=== PATIENT | female | born 1995 | race Hispanic/Latino ===

== ENCOUNTER 2021-02-26 13:59 | Outpatient (CLI) | payer BC, SELFPAY ==
--- NOTE | ~2021-02-26 | US_ITS ---
EXAMINATION: US OB /maternal detail DATE: 02/26/2021 15:26 INDICATION: anatomic survey. TECHNIQUE: Real-time ultrasound of the pelvis was performed. COMPARISON: None. FINDINGS: There is a single living fetus in variable presentation. The placenta is anterior. heart rate is 152 beats per minute (bpm). The amniotic fluid volume is subjectively normal. The following biometric data were obtained: Biparietal diameter (BPD): 5.1 cm; head circumference (HC): 19.0 cm; abdominal circumference (AC): 16 .9 cm; femur length (FL): 3.6 cm. These measurements are concordant. Estimated weight is 442 g +/- 66 g, which correlates with 35th percentile when 07/03/21 is used a s estimated date of delivery. As single measurements, these parameters are each equal to the following estimated gestational ages: BPD: 21 weeks 4 days. HC: 21 weeks 2 days. AC: 21 weeks 6 days. FL: 21 weeks 4 days. estimated gestational age based solely on measurements from this exam is 21 weeks 4 days +/- 1 weeks 4 days. The cerebral ventricles, cerebellum, cisterna magna, nuchal fold, and visualized portions of the spin e are normal, but not well visualized. The heart is not well visualized. The diaphragm, stomach, kidn eys, and bladder are normal. There are two umbilical arteries to yield a 3-vessel cord. The cord inse rtion is normal. IMPRESSION: 1. Single living fetus in variable presentation. 2. Estimated weight is 442 g +/- 66 g, which correlates with 35th percentile when 07/03/21 is us ed as estimated date of delivery. 3. heart not well visualized. Otherwise normal anatomic survey. Reviewed, dictated and finalized at location A. IMPRESSION: 1. Single living fetus in variable presentation. 2. Estimated weight is 442 g +/- 66 g, which correlates with 35th percen tile when 07/03/21 is used as estimated date of delivery. 3. heart not well visualized. Otherwise normal anatomic survey.
== END 2021-02-26 14:00 | disposition home or self-care (01) ==
PROVIDERS: Visit Provider Obstetrics & Gynecology
DX: Z36.89 Encounter for other specified antenatal screening (principal); Z3A.20 20 weeks gestation of pregnancy
CPT/HCPCS: 76805

== ENCOUNTER 2021-04-20 08:49 | Outpatient (RCR) | payer OTHER, SELFPAY ==
[2021-04-20] MEDS: RHO(D) IMMUNE GLOBULIN 300 MCG/2 ML SYRINGE IM (15:28)
== END 2021-07-18 23:59 | disposition home or self-care (01) ==
LOC: ANHLAB 08:49
PROVIDERS: Visit Provider Obstetrics & Gynecology
DX: Z29.13 Encounter for prophylactic Rho(D) immune globulin (principal); O36.0190 Maternal care for anti-D [Rh] antibodies, unspecified trimester, not applicable or unspecified; Z3A.00 Weeks of gestation of pregnancy not specified
CPT/HCPCS: 36415; 85461; 90384; 96372; J2790

== ENCOUNTER 2021-06-04 23:29 | Outpatient (CLI) | payer OTHER, SELFPAY ==
--- NOTE | 2021-06-05 00:11 | PC.NURSE ---
Dr. Clarke aware of pt cervical exam. Pt membranes intact with reactive strip. Okay to discharge pt.
[2021-06-05 00:45] VITALS: BP 136/88; PULSE 85
== END 2021-06-05 00:41 | disposition home or self-care (01) ==
LOC: ANHOBOP 23:37
PROVIDERS: Visit Provider Obstetrics & Gynecology
DX: O41.8X90 Other specified disorders of amniotic fluid and membranes, unspecified trimester, not applicable or unspecified (principal); Z3A.00 Weeks of gestation of pregnancy not specified
CPT/HCPCS: 59025; 84112

== ENCOUNTER 2021-06-29 12:23 | Inpatient (IN) | payer OTHER, SELFPAY ==
[2021-06-29] VITALS (60 sets, daily range): BP systolic 86–140; BP diastolic 44–94; PULSE 76–220; RESP 16; TEMP 36.4–37.2; O2SAT 93–100; BMI 45.1
[2021-06-29] MEDS: LACTATED RINGERS 1,000 ML 125 ML IV CONT ×2 (13:57→14:53)
[2021-06-29] MEDS: AMPICILLIN 2 GM/NS 100 ML 2 GM/100 ML BAG IVPB (13:58)
[2021-06-29 14:01] LABS: Basophils Absolute Auto 0.1 K/mm3 (0.0-0.1); Basophils Percent Auto 0.5 % (0.2-1.2); Eosinophils Absolute Auto 0.1 K/mm3 (0-0.3); Eosinophils Percent Auto 0.7 % (0-4.4); Hemoglobin 11.1 g/dL (12.0-15.0); Immature Granulocyte Absolute 0.06 K/mm3 (0.00-0.031); Immature Granulocyte Percent A 0.5 % (0-0.5); Lymphocytes Absolute Auto 2.04 K/mm3 (0.9-3.2); Lymphocytes Percent Auto 18.4 % (18.3-44.2); Mean Corpuscular HGB Conc 30.8 g/dl (32-36); Mean Corpuscular Hemoglobin 25.3 pg (26-34); Mean Platelet Volume 9.2 fl (7.4-10.4); Monocytes Absolute Auto 0.6 K/mm3 (0.1-0.6); Monocytes Percent Auto 5.6 % (2.6-8.5); Neutrophils Absolute Auto 8.2 K/mm3 (1.3-6.7); Neutrophils Percent Auto 74.3 % (45.5-73.1); Platelet Count Result 514 k/mm3 (150-375); Red Blood Count 4.39 M/mm3 (4.2-5.4); Red Cell Distribution Width 15.1 % (11.5-14.5); White Blood Count 11.1 K/mm3 (4.5-10.0)
[2021-06-29] MEDS: OXYTOCIN 30 UNITS/NS 500 ML 30 UNITS/500 ML BAG IV CONT (14:54)
--- NOTE | 2021-06-29 14:54 | WPDANESEPPF ---
Anes - Initial Pre Proc Eval Procedure: labor epidural Date/Time: 06/29/21 14:54 Surgeon: Star Claudio MD Pre Op Diagnosis: labor pain Pre Op Diagnosis: Cramping & Leaking Patient Data Age: 26 Gender: F Height: Weight: Last Vital Signs Temp 37.2 C 06/29/21 14:00 Pulse 92 06/29/21 14:51 BP 133/71 06/29/21 14:51 Pulse Ox 99 06/29/21 14:49 Allergies Allergy/AdvReac Type Severity Reaction Status Date / Time No Known Allergies Allergy Verified 06/29/21 13:12 Home Medications Medication Instructions Recorded Confirmed Type prenat.vits,jayden,zbn-ijnt-hbqqo 1 tablet PO DAILY 06/29/21 06/29/21 History [ #2] Laboratory Tests 06/29/21 06/29/21 13:49 13:49 WBC 11.1 K/mm3 H K/mm3 (4.5-10.0) RBC 4.39 M/mm3 M/mm3 (4.2-5.4) Hgb 11.1 g/dL L g/dL (12.0-15.0) Hct 36.0 % L % (37.0-47.0) MCV 82.0 fl fl (80-100) MCH 25.3 pg L pg (26-34) MCHC 30.8 g/dl L g/dl (32-36) RDW 15.1 % H % (11.5-14.5) Plt Count 514 k/mm3 H k/mm3 (150-375) MPV 9.2 fl fl (7.4-10.4) Immature Gran % (Auto) 0.5 % % (0-0.5) Neut % (Auto) 74.3 % H % (45.5-73.1) Lymph % (Auto) 18.4 % % (18.3-44.2) [place] % (Auto) 5.6 % % (2.6-8.5) Eos % (Auto) 0.7 % % (0-4.4) Baso % (Auto) 0.5 % % (0.2-1.2) Lymph # (Auto) 2.04 K/mm3 K/mm3 (0.9-3.2) [place] # (Auto) 0.6 K/mm3 K/mm3 (0.1-0.6) Eos # (Auto) 0.1 K/mm3 K/mm3 (0-0.3) Baso # (Auto) 0.1 K/mm3 K/mm3 (0.0-0.1) Abs Immat Gran (auto) 0.06 K/mm3 H K/mm3 (0.00-0.031) Absolute Neuts (auto) 8.2 K/mm3 H K/mm3 (1.3-6.7) Absolute Nucleated RBC 0.0 K/mm3 K/mm3 (0.0-0.012) Nucleated RBC % 0.0 % % (0.0-0.2) RPR Pending Patient hx anesthesia problems: none Family hx anesthesia problems: none PMFSH Family History Family History (Updated 06/29/21 @ 13:13 by Aubree Amaral RN) Father Diabetes mellitus Social History Social History Substance use: former Last use: 8 MONTHS AGO Spiritual care concerns: No Anes - Eval Final PreProcedure Day of Procedure 06/29/21 14:54 Informed Consent: The patient's anesthetic plan and its attendant risks and benefits were discussed with the patient/family/POA. Questions were solicited and answers provided to the satisfaction of the patient/family/POA.
--- NOTE | 2021-06-29 16:22 | WPDHPUPDATE1 ---
History and Physical Update Update Date/Time: 06/29/21 16:22 26 yo at 39w0d who presents with SROM. pt reports a gush of fluid last night. She denies any abdominal pain, fever, chills, nausea, vomiting. Pt has a history of PTD after PPROM. Her has been uncomplicated thus far. History and Physical has been reviewed, including an updated exam of the patient. There are NO changes in the patient's condition. Risks, benefits, and alternatives have been discussed and questions answered. Patient agrees to proceed with procedure. 26 yo at 39w0d with SROM admit to L&D routine admission orders Rh neg, will need rhogam PP GBS +, PCN in labor SROM will augment with pitocin FHT cat 1 continuous EFM
--- NOTE | 2021-06-29 17:11 | P.PCNOB_ITS ---
OB - Delivery Note Procedure Procedure: Patient pushed for a spontaneous vaginal delivery. The fetus was delivered atraumatically and placed on the maternal abdomen. The cord was clamped and cut after 1 minute of life. The cord was double clamped and cut and a segment of cord was collected for cord gases. Cord blood was collected for blood type and Coomb's testing. The placenta delivered spontaneously and was noted to be intact. The perineum was inspected and there were no lacerations noted. The uterus was firm and good hemostasis was noted. The patient and fetus were stable in the delivery room. events: No Care Intrapartal events: None Induction method: none Delivery augmentation: pitocin Delivery monitor: external FHT Route of delivery: Episiotomy description: None Laceration Description: None Specimen: No Quantitative Blood Loss (ml): 200 Anesthesia type: Epidural Disposition: floor () Complications: No immediate complications [place] Baby Date of : 06/29/21 Time of : 17:02 Weeks of gestation at delivery: 39 gender: Female Weight (pounds): 5 Weight (ounces): 10 presentation: vertex position: Right Occiput Anterior Placenta delivery description: Spontaneous cord vessel description: 3 Vessels score one minute: 8 score five minutes: 9
[2021-06-29] MEDS: OXYTOCIN 30 UNITS/NS 500 ML 30 UNITS/500 ML BAG 125 UNITS IV CONT (17:19)
[2021-06-29] MEDS: WITCH HAZEL 40 PADS 1 PAD TOPICAL (19:20)
[2021-06-29] MEDS: IBUPROFEN 600 MG TABLET PO (19:20)
[2021-06-29] MEDS: LORATADINE 10 MG TABLET PO (19:20)
[2021-06-29] MEDS: BENZOCAINE 20% AER SPR (*SP) 56 GM CAN 1 SPRAY TOPICAL (19:20)
--- NOTE | 2021-06-29 20:03 | PC.NURSE ---
Patient transferred to post room #277 via wheel chair. Support person present. Oriented to unit, room, information board, rooming in, admission packet and security measures. Patient verbalizes understanding.
[2021-06-29] MEDS: ACETAMINOPHEN 325 MG TABLET 650 MG PO (23:43)
[2021-06-30] MEDS: LANOLIN (LANSINOH) 7.5 GM CREAM 1 APPLIC TOPICAL (00:33)
[2021-06-30 00:40] VITALS: BP 94/54; PULSE 88; RESP 18; TEMP 36.6; O2SAT 98
[2021-06-30] MEDS: IBUPROFEN 600 MG TABLET PO ×4 (01:50→20:16)
[2021-06-30 02:36] LABS: Amphetamine Screen Urine Negative (Negative); Barbiturate Screen Urine Negative (Negative); Benzodiazepines Screen Urine Negative (Negative); Cannabinoid Screen Urine Negative (Negative); Cocaine Screen Urine Negative (Negative); Methadone Screen Urine Negative (Negative); Opiate Screen Urine Negative (Negative); Phencyclidine Screen Urine Negative (Negative)
[2021-06-30 04:10] VITALS: BP 94/51; PULSE 82; RESP 18; TEMP 36.7
[2021-06-30 05:24] LABS: Hematocrit 33.8 % (37.0-47.0); Hemoglobin 10.4 g/dL (12.0-15.0)
[2021-06-30] MEDS: ACETAMINOPHEN 325 MG TABLET 650 MG PO (06:39)
[2021-06-30] MEDS: MULTIVIT/MIN/PREN/FOL AC/IRON TABLET 1 TAB PO (06:41)
[2021-06-30 06:45] VITALS: BP 118/82; PULSE 80; RESP 18; TEMP 36.1
--- NOTE | 2021-06-30 09:08 | PM.OBDSVD ---
DS: Admitting Diagnosis Admitting Diagnosis intrauterine at term SROM OB - DS: Summary OB Procedures : None OB Procedures Intrapartum: Spontaneous Vag Delivery OB Procedures: : None Status at Discharge Functional status at discharge: independent ambulation Overall status at discharge: patient is back to baseline Time Spent with Patient Time attestation: Total time spent providing and/or coordinating discharge services: Time spent: Less than 30 minutes Exam Const: General: comfortable and no acute distress Resp: Effort & Inspection: normal respiratory effort Auscultation: clear to auscultation bilaterally Cardio: Rate: regular rate GI: GI Palp: Yes Soft to palpation Auscultation: normal bowel sounds Other: Fundus firm below umbilicus Psych: Appearance: grossly normal Mental Status: mental status grossly normal Affect: normal affect DS: Data Data Completed and Pending Labs on day of discharge: Labs from last 24 hours 06/30/21 06/30/21 06/30/21 04:02 04:02 01:50 WBC RBC Hgb 10.4 L Hct 33.8 L MCV MCH MCHC RDW Plt Count MPV Immature Gran % (Auto) Neut % (Auto) Lymph % (Auto) [place] % (Auto) Eos % (Auto) Baso % (Auto) Lymph # (Auto) [place] # (Auto) Eos # (Auto) Baso # (Auto) Abs Immat Gran (auto) Absolute Neuts (auto) Absolute Nucleated RBC Nucleated RBC % Urine Opiates Screen Negative Urine Methadone Screen Negative Ur Barbiturates Screen Negative Ur Phencyclidine Scrn Negative Ur Amphetamine Screen Negative U Benzodiazepines Scrn Negative Urine Cocaine Screen Negative U Cannabinoids Screen Negative RPR Blood Type O Negative Antibody Screen Negative Screen Negative Baby's Blood Type O pos Baby's KLAUS Negative Doses of RhIg Required 1 06/29/21 06/29/21 06/29/21 13:49 13:49 13:49 WBC 11.1 H RBC 4.39 Hgb 11.1 L Hct 36.0 L MCV 82.0 MCH 25.3 L MCHC 30.8 L RDW 15.1 H Plt Count 514 H MPV 9.2 Immature Gran % (Auto) 0.5 Neut % (Auto) 74.3 H Lymph % (Auto) 18.4 [place] % (Auto) 5.6 Eos % (Auto) 0.7 Baso % (Auto) 0.5 Lymph # (Auto) 2.04 [place] # (Auto) 0.6 Eos # (Auto) 0.1 Baso # (Auto) 0.1 Abs Immat Gran (auto) 0.06 H Absolute Neuts (auto) 8.2 H Absolute Nucleated RBC 0.0 Nucleated RBC % 0.0 Urine Opiates Screen Urine Methadone Screen Ur Barbiturates Screen Ur Phencyclidine Scrn Ur Amphetamine Screen U Benzodiazepines Scrn Urine Cocaine Screen U Cannabinoids Screen RPR Pending Blood Type O Negative Antibody Screen Negative Screen Baby's Blood Type Baby's KLAUS Doses of RhIg Required Discharge Plan Discharge Discharging Clinician: Stefano Eisenberg Patient Disposition: Home, Self-Care Activity: as tolerated and pelvic rest Diet: regular Patient Instructions: Antibiotic Form Stand Alone Forms: General Discharge Information Follow-up/Referrals: Star Claudio MD [Physician] - 6 Weeks Discharge Medications: New acetaminophen [Mapap (acetaminophen)] 325 mg Tablet 650 mg PO Q6H PRN (Reason: Mild Pain (1-3) Or Headache) Qty: 30 RF: 0 ibuprofen 600 mg Tablet 600 mg PO Q6H PRN (Reason: Cramping) Qty: 30 RF: 0 No Action #2 Tablet 1 tablet PO DAILY RF: 0 Date of admission: 06/29/21 12:23 Primary Care Provider: PHYSICIAN,CLINICAL MANAGER HOME CARE Admitting Provider: Star Claudio Attending physician on admission: Star Claudio Condition: Stable
[2021-06-30 11:30] VITALS: BP 133/74; PULSE 92; RESP 18; TEMP 36.1
[2021-06-30] MEDS: TETANUS,DIPHTHERIA,AC PERTUSSIS ADULT (0.5 ML) BOOSTRIX IM (11:54)
[2021-06-30] MEDS: RHO(D) IMMUNE GLOBULIN 300 MCG/2 ML SYRINGE IM (11:54)
[2021-06-30 16:00] VITALS: BP 112/71; PULSE 91; RESP 18; TEMP 36.1; O2SAT 99
[2021-06-30 19:20] VITALS: BP 131/80; PULSE 97; RESP 16; TEMP 36.7
--- NOTE | 2021-06-30 22:04 | PC.NURSE ---
Patient viewed the discharge video Mother & Baby Care, The First Two Weeks online. Patient was given the opportunity and encouraged to ask questions. Patient verbalized understanding of information shared and has been given the mother/baby guide for home reference.
[2021-07-01] MEDS: IBUPROFEN 600 MG TABLET PO ×2 (02:12→07:49)
[2021-07-01] MEDS: MULTIVIT/MIN/PREN/FOL AC/IRON TABLET 1 TAB PO (07:49)
[2021-07-01 08:00] VITALS: BP 112/78; PULSE 92; RESP 16; TEMP 36.4; O2SAT 100
[2021-07-03 10:30] LABS: Rapid Plasma Reagin Non-Reactive (NonReactive)
[2021-07-04 10:54] VITALS: BP 133/76; PULSE 79; RESP 20; TEMP 37.1; O2SAT 100
== END 2021-07-01 11:08 | disposition home or self-care (01) | DRG 560 ==
LOC: ANHLDR 13:27 → ANHOB2 06-30 09:09 → ANHLDR 07-04 11:38 → ANHOB2 07-04 11:38
PROVIDERS: Admitting Provider Student in an Organized Health Care Education/Training Program; Visit Provider Student in an Organized Health Care Education/Training Program
DX: O99.824 Streptococcus B carrier state complicating childbirth (principal); O62.3 Precipitate labor; Z3A.39 39 weeks gestation of pregnancy; Z37.0 Single live birth
CPT/HCPCS: 36415; 80307; 85014; 85018; 85025; 85461; 86592; 86850; 86900; 86901; 90384; 90715; A9270; J0290; J2590; J2790; J2795; J7120

== ENCOUNTER 2024-05-17 10:38 | Emergency (ER) | payer OTHER, SELFPAY ==
--- NOTE | ~2024-05-17 | XR_ITS ---
EXAMINATION: XR thoracic spine 3V DATE: 05/17/2024 11:37 INDICATION: Right upper back pain TECHNIQUE: One AP, lateral and lateral swimmer's views of the thoracic spine were obtained. COMPARISON: None. FINDINGS: Bilateral hypoplastic riblets at T12. Partially visualized mild upper lumbar levocurvature. Sagittal alignment is normal. Vertebral body heights are normal. Mild left-sided disc height loss at T11-T12. Mild right-sided disc height loss at T12-L1 and L1-L2. Posterior elements and visualized portions of the ribs appear normal. Lungs are clear with no pleural effusion or pneumothorax. Heart size is roberto l. IMPRESSION: 1. Partial visualized mild upper lumbar levocurvature with mild spondylosis at the lower thoracic and upper lumbar spine. Reviewed, dictated and finalized at location A.
[2024-05-17 10:53] VITALS: BP 124/71; PULSE 73; RESP 20; TEMP 36.4; O2SAT 100
[2024-05-17] MEDS: KETOROLAC (*BKC) 60 MG/2 ML VIAL IM (11:43)
--- NOTE | 2024-05-17 13:38 | ED.BACK ---
HPI - Back Pain/Injury General Chief Complaint: Back Pain/Injury Stated Complaint: R back pain Time Seen by Provider: 05/17/24 11:07 History of Present Illness HPI Narrative: Patient is a 29-year-old female who presents ER with left-sided upper back pain. Ongoing since this morning. 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 She has no known trauma but he moves patient's regular. No numbness or tingling in the arms or legs. Has not tried any pain medication. Related Data Allergies Allergy/AdvReac Type Severity Reaction Status Date / Time No Known Allergies Allergy Verified 05/17/24 10:57 Review of Systems Constitutional: Constitutional: Reports no additional constitutional complaints Genitourinary: Genitourinary: Reports no additional female genitourinary complaints Musculoskeletal: Musculoskeletal: Reports back pain, Denies arthralgias and Denies joint swelling Neurologic: Reports system reviewed and no additional complaints, except as documented PMFSH Surgical History Surgical History H/O breast augmentation H/O gynecological procedure 09/30/23 Nexplanon insertion History of ankle surgery Family History Family History Father Diabetes mellitus Social History Social History (Updated 09/30/23 @ 13:55 by Jayne Hernandez MA) Smoking status: Never smoker Alcohol intake: never Substance use: former Lack of Transportation: No Lack of Food: Never True Current Housing: I Have Housing Concerned About Future Housing: No Difficulty Paying Gas/Electric Bills: YES Difficulty Paying for Meds: YES Currently Unemployed: No Education: High School Diploma/GED Difficulty w/ Childcare or Family Care: YES Living arrangements: with family Occupation/Education: occupation Gender identity (if verbalized by the patient): Female Sexual Orientation (if Verbalized by the Patient): Straight or Heterosexual Spiritual care concerns: No Exam Narrative: GENERAL: Well-appearing, well-nourished, and in no acute distress. HEAD: Normocephalic, atraumatic. CHEST: Clear to auscultation. No respiratory distress. HEART: Regular rate and rhythm. Normal peripheral pulses. Back: No reproducible midline tenderness the T/L-spine. Mild tenderness of the paraspinal musculature the midthoracic region on left side. EXTREMITIES: Normal range of motion. No edema. SKIN: Warm, dry, no rash. NEURO: Alert and oriented x3. PSYCH: Normal mood and affect. Course Course Emergency Course: Pain improved with Toradol. Discussed outpatient treatment plan and discussed imaging results. Vital Signs Vital signs: Vital Signs Temperature 97.6 F 05/17/24 10:53 Pulse Rate 73 05/17/24 10:53 Respiratory Rate 20 05/17/24 10:53 Blood Pressure 124/71 05/17/24 10:53 Pulse Oximetry 100 05/17/24 10:53 Oxygen Delivery Room Air 05/17/24 10:53 Temperature 97.6 F 05/17/24 10:53 Pulse Rate 73 05/17/24 10:53 Respiratory Rate 20 05/17/24 10:53 Blood Pressure 124/71 05/17/24 10:53 Pulse Oximetry 05/17/24 10:53 Oxygen Delivery Room Air 05/17/24 10:53 MDM - Back Pain/Injury Imaging Data Radiologist's impression: ITS Impressions Thoracic Spine X-Ray 05/17/24 12:06 IMPRESSION: 1. Partial visualized mild upper lumbar levocurvature with mild spondylosis at the lower thoracic and upper lumbar spine. Discharge Plan Discharge Clinical Impression: Strain of thoracic back region Patient Disposition: Home, Self-Care Condition: Stable Instructions: Thoracic Back Strain (ED) Additional Instructions: Please return to the emergency department if you develop severe pain that is not controlled by pain medications or if you are unable to walk because of pain or weakness. Return to the emergency department immediately if you develop fevers, loss of bowel or
== END 2024-05-17 14:07 | disposition home or self-care (01) ==
PROVIDERS: Emergency Provider Emergency Medicine
DX: S29.012A Strain of muscle and tendon of back wall of thorax, initial encounter (principal); X50.0XXA Overexertion from strenuous movement or load, initial encounter; Y93.F2 Activity, caregiving, lifting
CPT/HCPCS: 72072; 81025; 96372; 99283; J1885

== ENCOUNTER 2025-01-01 05:38 | Emergency (ER) | payer OTHER, SELFPAY ==
--- NOTE | ~2025-01-01 | US_ITS ---
EXAMINATION: US abdomen limited DATE: 01/01/2025 08:49 INDICATION: Right upper quadrant abdominal pain. TECHNIQUE: Multiple grayscale and Doppler ultrasound images of the abdomen were obtained. COMPARISON: None FINDINGS: The visualized portions of the head and body of the pancreas are normal. The liver is roberto l without focal lesion. There is normal flow in main portal vein. The gallbladder is normal in size a nd contains stones. No gallbladder wall thickening or sonographic Mulligan sign. The common duct is nor mal and measures 4 mm. IMPRESSION: 1. Cholelithiasis. No evidence of acute cholecystitis. Reviewed, dictated and finalized at location A. R CHASER
[2025-01-01 05:59] LABS: BEDSIDEPREGUCG Negative (Negative)
[2025-01-01 06:06] LABS: Basophils Absolute Auto 0.1 K/mm3 (0.0-0.1); Basophils Percent Auto 0.9 % (0.2-1.2); Eosinophils Absolute Auto 1.2 K/mm3 (0-0.3); Eosinophils Percent Auto 10.9 % (0-4.4); Hematocrit 37.7 % (37.0-47.0); Hemoglobin 11.8 g/dL (12.0-15.0); Immature Granulocyte Absolute 0.05 K/mm3 (0.00-0.031); Immature Granulocyte Percent A 0.5 % (0-0.5); Lymphocytes Absolute Auto 3.25 K/mm3 (0.9-3.2); Lymphocytes Percent Auto 30.6 % (18.3-44.2); Mean Corpuscular HGB Conc 31.3 g/dl (32-36); Mean Corpuscular Hemoglobin 27.7 pg (26-34); Mean Corpuscular Volume 88.5 fl (80-100); Mean Platelet Volume 9.2 fl (7.4-10.4); Monocytes Absolute Auto 0.7 K/mm3 (0.1-0.6); Monocytes Percent Auto 6.5 % (2.6-8.5); Neutrophils Absolute Auto 5.4 K/mm3 (1.3-6.7); Neutrophils Percent Auto 50.6 % (45.5-73.1); Platelet Count Result 455 k/mm3 (150-375); Red Blood Count 4.26 M/mm3 (4.2-5.4); Red Cell Distribution Width 15.9 % (11.5-14.5); White Blood Count 10.6 K/mm3 (4.5-10.0)
[2025-01-01 06:08] LABS: Add Urine Microscopic? NO; Appearance Urine Clear (Clear); Bilirubin Urine Negative (Negative); Blood Urine Negative (Negative); Color Urine Yellow (Yellow); Glucose Urine UA Negative (Negative); Ketones Urine Negative (Negative); Leukocyte Esterase Ur Negative LEU/UL (Negative); Nitrate Urine Negative (Negative); Protein Urine Negative (Negative); Specific Grav Ur 1.022 (1.001-1.035)
[2025-01-01 06:18] LABS: Alanine Aminotransferase 46 U/L (6-35); Albumin Level 4.5 g/dL (3.5-5.1); Alkaline Phosphatase 93 U/L (38-126); Anion Gap 6 mmol/L (4-12); Aspartate Amino Transferase 31 U/L (14-36); Bilirubin,Total 0.2 mg/dL (0.2-1.3); Blood Urea Nitrogen 13 mg/dL (7-17); Calcium 8.6 mg/dL (8.4-10.2); Carbon Dioxide 29 mmol/L (22-30); Chloride 103 mmol/L (98-107); Estimated CRCL calculation 165 ml/min; Estimated Glomerular Filt Rate > 60; Glucose 106 mg/dL (65-110); Lipase 69 U/L (23-300); Potassium 3.8 mmol/L (3.4-5.0); Sodium 138 mmol/L (137-145)
--- NOTE | 2025-01-01 07:03 | ECG_ITS ---
Test Date: 2025-01-01 07:14:02 Measurements Intervals [place] Rate: 60 P: 1 DC: 143 QRS: 66 QRSD: 83 T: 32 QT: 445 QTc: 445 Interpretive Statements SINUS RHYTHM NORMAL ELECTROCARDIOGRAM No previous ECG available for comparison Electronically Signed On 01-01-2025 15:54:21 DENTAL RESIDENT by Dez Fischer M.D.
[2025-01-01] MEDS: BELLADONNA ALK/PHENOB ELIX 10 ML, MAG HYDROX/ALUMINUM HYD/SIMETH 30 ML, LIDOCAINE 2% VI... PO (07:19)
[2025-01-01] MEDS: FAMOTIDINE 20 MG/2 ML VIAL IV PUSH (07:21)
[2025-01-01] MEDS: PANTOPRAZOLE SODIUM IV 40 MG VIAL IV PUSH (07:23)
[2025-01-01 07:26] VITALS: BP 107/80; PULSE 81; RESP 16; O2SAT 100
--- NOTE | 2025-01-01 07:43 | ED_ITS ---
HPI - General Adult General Chief complaint: Unspecified Stated complaint: epigastric and back pain Time Seen by Provider: 01/01/25 06:55 History of Present Illness HPI narrative: 29-year-old female presenting to the emergency department for evaluation for acute onset of right upper quadrant abdominal pain. Patient states she started having upper quadrant pain last night approximately 2:00 a.m.. Patient has nausea without vomiting. Patient did try home remedies for this without improvement. Patient denies any prior history of gallbladder disease. Patient does have prior surgical history of breast augmentation. Patient denies any prior abdominal surgeries. Related Data Allergies Allergy/AdvReac Type Severity Reaction Status Date / Time No Known Allergies Allergy Verified 01/01/25 07:18 Review of Systems 2 Review of Systems: All systems reviewed & are unremarkable except as noted in HPI and below PMFSH Surgical History Surgical History H/O breast augmentation H/O gynecological procedure 09/30/23 Nexplanon insertion History of ankle surgery Family History Family History Father Diabetes mellitus Social History Social History (Updated 09/30/23 @ 13:55 by Jayne Hernandez MA) Smoking status: Never smoker Alcohol intake: never Substance use: former Lack of Transportation: No Lack of Food: Never True Current Housing: I Have Housing Concerned About Future Housing: No Difficulty Paying Gas/Electric Bills: YES Difficulty Paying for Meds: YES Currently Unemployed: No Education: High School Diploma/GED Difficulty w/ Childcare or Family Care: YES Living arrangements: with family Occupation/Education: occupation Gender identity (if verbalized by the patient): Female Sexual Orientation (if Verbalized by the Patient): Straight or Heterosexual Spiritual care concerns: No Exam 2 Narrative: APPEARANCE: Well appearing, no pain, no distress, well-nourished. HEAD: normocephalic, atraumatic. EYES: PERRLA/EOMI, conjunctivae clear. NOSE: Normal no drainage EARS:TMS clear with good light reflex. THROAT: Pharynx clear, no exudate. NECK: Supple. No adenopathy, no masses. RESPIRATORY: Airway patent, respirations nonlabored. Clear to auscultation bilaterally, no rales, rhonchi, wheezing. CARDIOVASCULAR: Regular rate and rhythm without murmurs rubs or gallops. ABDOMINAL: Right upper quadrant abdominal tenderness, minimal epigastric tenderness, no significant left upper quadrant abdominal tenderness MUSCULOSKELETAL: Moves all extremities. Strength/ROM intact, No edema, No calf tenderness. NEURO: Alert. Cranial nerves II through XII intact. Grossly intact SKIN: Warm, dry. Normal Color Course Vital Signs Vital signs: Vital Signs Pulse Rate 81 01/01/25 07:26 Respiratory Rate 16 01/01/25 07:26 Blood Pressure 107/80 01/01/25 07:26 Pulse Oximetry 100 01/01/25 07:26 Temperature 97.5 F L 01/01/25 11:08 Pulse Rate 62 01/01/25 11:08 Respiratory Rate 16 01/01/25 11:08 Blood Pressure 113/89 01/01/25 11:08 Pulse Oximetry 100 01/01/25 11:08 Medical Decision Making MDM Narrative Medical decision making narrative: 29-year-old female presents emergency department for evaluation right upper quadrant abdominal pain. Patient is currently afebrile with a mild leukocytosis of 10.7 and hemoglobin 11.8. Patient has no elevation of T bili AST alk-phos or lipase. UA was negative for infection. Ultrasound did show cholelithiasis without evidence of cholecystitis. Patient does appear improved at time of re- evaluation. Patient was advised to follow a low-fat diet and have outpatient follow-up. Patient is being provided medications for pain control. All questions concerns were addressed patient was comfortable the plan for discharge and close follow-up. Differential Diagnosis Differential Diagnosis: Biliary colic, coli cystitis, cholelithiasis Vital Signs Vital Signs: Vital Signs Pulse Rate 81 01/01/25 07:26 Respiratory Rate 16 01/01/25 07:26 Blood Pressure 107/80 01/01/25 07:26 Pulse Oximetry 100 01/01/25 07:26 Temperature 97.5 F L 01/01/25 11:08 Pulse Rate 62 01/01/25 11:08 Respiratory Rate 16 01/01/25 11:08 Blood Pressure 113/89 01/01/25 11:08 Pulse Oximetry 100 01/01/25 11:08 Lab Data Lab results reviewed: Yes I reviewed the patient's lab results. 01/01/25 05:59 01/01/25 05:59 Labs: Lab Results 01/01/25 01/01/25 Range/Units 05:58 05:59 WBC 10.6 H (4.5-10.0) K/mm3 RBC 4.26 (4.2-5.4) M/mm3 Hgb 11.8 L (12.0-15.0) g/dL Hct 37.7 (37.0-47.0) % MCV 88.5 (80-100) fl MCH 27.7 (26-34) pg MCHC 31.3 L (32-36) g/dl RDW 15.9 H (11.5-14.5) % Plt Count 455 H (150-375) k/mm3 MPV 9.2 (7.4-10.4) fl Immature Gran % (Auto) 0.5 (0-0.5) % Neut % (Auto) 50.6 (45.5-73.1) % Lymph % (Auto) 30.6 (18.3-44.2) % [place] % (Auto) 6.5 (2.6-8.5) % Eos % (Auto) 10.9 H (0-4.4) % Baso % (Auto) 0.9 (0.2-1.2) % Lymph # (Auto) 3.25 H (0.9-3.2) K/mm3 [place] # (Auto) 0.7 H (0.1-0.6) K/mm3 Eos # (Auto) 1.2 H (0-0.3) K/mm3 Baso # (Auto) 0.1 (0.0-0.1) K/mm3 Abs Immat Gran (auto) 0.05 H (0.00-0.031) K/mm3 Absolute Neuts (auto) 5.4 (1.3-6.7) K/mm3 Absolute Nucleated RBC 0.000 (0.0-0.012) K/mm3 Nucleated RBC % 0.0 (0.0-0.2) % Sodium 138 (137-145) mmol/L Potassium 3.8 (3.4-5.0) mmol/L Chloride 103 (98-107) mmol/L Carbon Dioxide 29 (22-30) mmol/L Anion Gap 6 (4-12) mmol/L BUN 13 (7-17) mg/dL Creatinine 0.55 L (0.7-1.0) mg/dL Estim Creat Clear Calc 165 ml/min Estimated GFR > 60 (59 - ) Glucose 106 (65-110) mg/dL Calcium 8.6 (8.4-10.2) mg/dL Total Bilirubin 0.2 (0.2-1.3) mg/dL AST 31 (14-36) U/L ALT 46 H (6-35) U/L Alkaline Phosphatase 93 (38-126) U/L Total Protein 8.0 (6.3-8.2) g/dL Albumin 4.5 (3.5-5.1) g/dL Lipase 69 (23-300) U/L Urine Color Yellow (Yellow) Urine Appearance Clear (Clear) Urine pH 7.0 (5.0-9.0) Ur Specific Dexter 1.022 (1.001-1.035) Urine Protein Negative (Negative) mg/dL Urine Glucose (UA) Negative (Negative) mg/dL Urine Ketones Negative (Negative) mg/dL Ur Blood (Man) Negative (Negative) Urine Nitrate Negative (Negative) Urine Bilirubin Negative (Negative) Urine Urobilinogen 1.0 (<2.0) mg/dL Leukocyte Esterase Rfl Negative (Negative) KOBE/UL POC Urine HCG, Qual Negative (Negative) Imaging Data Radiologist's impression: Impressions Abdomen Ultrasound 01/01/25 08:52 IMPRESSION: 1. Cholelithiasis. No evidence of acute cholecystitis. Discharge Plan Discharge Clinical Impression: Biliary colic Patient Disposition: Home, Self-Care Condition: Stable Instructions: Antibiotic Form, Biliary Colic (ED), Low Fat Diet (ED), Abdominal Pain (ED) Additional Instructions: Follow a low-fat diet. Ibuprofen for pain control. Russell as needed for additional pain control. Zofran as needed for nausea control. Have close follow-up with surgery. If you have any worsening symptoms then please call or return to the emergency department. Patient Language: Green[place]ic Prescriptions: New hydrocodone-acetaminophen 5-325 mg tablet 1 tablet PO Q12H PRN (Reason: pain) Qty: 14 0RF ondansetron 4 mg tablet,disintegrating 4 mg PO Q8H PRN (Reason: nausea and vomiting) Qty: 14 0RF No Action cyclobenzaprine 10 mg tablet 10 mg PO TID PRN (Reason: muscle spasm) Qty: 20 0RF naproxen 375 mg tablet 375 mg PO BID Qty: 14 0RF Follow-up/Referrals: PHYSICIAN NOT ON STAFF,NONSTAFF [Primary Care Provider] - Winston Ames DO [Physician] -
[2025-01-01] MEDS: ONDANSETRON INJ 4 MG/2 ML VIAL IV PUSH (07:51)
[2025-01-01] MEDS: HYDROmorphone HCL INJ (*CRX) 1 MG/ML SYR IV PUSH (07:53)
[2025-01-01 09:10] VITALS: BP 108/64; PULSE 97; RESP 17; O2SAT 100
[2025-01-01] MEDS: HYDROcodone/acetaminophen (*CRX) 7.5-325 MG TABLET 1 TAB PO (10:49)
[2025-01-01 10:50] VITALS: BP 109/68; PULSE 92; RESP 15; O2SAT 100
[2025-01-01 11:08] VITALS: BP 113/89; PULSE 62; RESP 16; TEMP 36.4; O2SAT 100
== END 2025-01-01 11:11 | disposition home or self-care (01) ==
PROVIDERS: Emergency Medicine; Emergency Provider Emergency Medicine
DX: K80.50 Calculus of bile duct without cholangitis or cholecystitis without obstruction (principal)
CPT/HCPCS: 36415; 76705; 80053; 81003; 81025; 83690; 85025; 93005; 96374; 96375; 99284; A9270; J1171; J2405; J2470

== ENCOUNTER 2025-01-28 00:08 | Day surgery (SDC) | payer OTHER, SELFPAY ==
[2025-01-21 11:41] VITALS: BMI 43.6
--- NOTE | 2025-01-21 11:49 | PC.NURSE ---
Report to the Outpatient Waiting Room, entrance under the green pavilion located off [facility], at time _1100_ on date _[id number]_. Planned Procedure Time: _1pm_.? Time changes happen often and if your time is changed the preop area will call you the afternoon before. - You and your visitor will be asked to self-screen and do not enter if you have any COVID symptoms. Please call surgeon if you need to reschedule. - A mask is optional within the hospital at this time. Patients may have clear liquids (water, carbonated beverages, clear teas, apple juice) until 3 hours prior to surgery with a maximum of 20 ounces. - No food from midnight until time of surgery and no smoking, or chewing tobacco (or any form of nicotine). No chewing gum, candy or mints. Take only the following medications with a SIP of water on the morning of surgery: ___Zofran if needed.___ DO NOT STOP ANY OF YOUR OTHER PRESCRIPTION MEDICATIONS PRIOR TO SURGERY EXCEPT THE FOLLOWING Hold all vitamins and supplements for 3 days per anesthesiologist. Medications to discontinue per physician Date to take last dose Please no make-up, nail american, hairspray, perfume, deodorant, or body powder the day of surgery.? No jewelry (including any body piercings) or valuables the day of surgery, leave them at home.? Please take a shower or bath the night before, or the morning of, surgery with an antibacterial soap.? Wear comfortable, loose fitting clothing.? - Jewelry must be removed prior to entering the operating room.? Rings and piercings that are not removed may be cut off. - The hospital will not accept responsibility for valuables.? - Please leave all valuables, including medications, at home the day of surgery. If you are going home after surgery, a licensed spotter driver must drive you home.? - NO public transportation without another adult if you receive anesthesia. - We recommend that an adult stay with you for 24 hours following discharge. - We also recommend that you do not drive, make important decision, drink alcoholic beverages, or take any drugs that were not prescribed by your health care provider for at least 24 hours after your discharge time. Follow any additional instructions given to you from your surgeon. Telephone instructions given to __Gloria__and asked if any additional questions and then verbalized understanding. Patient advised to call surgeon office or pre surgery nurse liaison [phone] if any additional questions.
[2025-01-28] VITALS (10 sets, daily range): BP systolic 108–139; BP diastolic 63–82; PULSE 82–108; RESP 12–20; TEMP 36.3–36.4; O2SAT 94–100; BMI 43.7
[2025-01-28] MEDS: ACETAMINOPHEN 500 MG TABLET 1000 MG PO (12:05)
[2025-01-28] MEDS: KETOROLAC 15 MG/ML VIAL (*BKC) IV PUSH (12:06)
[2025-01-28] MEDS: LACTATED RINGERS 1,000 ML 30 ML IV CONT ×2 (12:10→14:35)
[2025-01-28 12:25] LABS: Amylase 69 U/L (30-110)
[2025-01-28 12:36] LABS: BEDSIDEPREGUCG Negative (Negative)
--- NOTE | 2025-01-28 13:04 | WPDHPUPDATE1 ---
History and Physical Update Update Date/Time: 01/28/25 13:04 History and Physical has been reviewed, including an updated exam of the patient. There are NO changes in the patient's condition. Risks, benefits, and alternatives have been discussed and questions answered. Patient agrees to proceed with procedure.
--- NOTE | 2025-01-28 13:24 | WPDANESEPPF ---
Anes - Initial Pre Proc Eval Procedure: Operation Date: 01/28/25 13:00 Proposed Procedures p Laparoscopic Cholecystectomy - Winston Ames DO Date/Time: 01/28/25 13:24 Surgeon: Winston Ames DO Pre Op Diagnosis: symptomatic cholelithiasis Patient Data Age: 29 Gender: F Height: 1.68 m Weight: 122.9 kg Last Vital Signs Temp 36.4 C L 01/28/25 11:30 Pulse 95 01/28/25 11:30 Resp 14 01/28/25 11:30 BP 119/73 01/28/25 11:30 Pulse Ox 100 01/28/25 11:30 O2 Del Method Room Air 01/28/25 11:30 Allergies Allergy/AdvReac Type Severity Reaction Status Date / Time No Known Allergies Allergy Verified 01/28/25 12:28 Home Medications ?Medication ?Instructions ?Recorded ?Confirmed ?Type ondansetron 4 mg disintegrating 4 mg PO Q8H PRN nausea and 01/01/25 01/21/25 Rx tablet vomiting #14 tabs hydrocodone 5 mg-acetaminophen 325 1 tablet PO Q4H PRN pain #15 tabs 01/21/25 01/21/25 Rx mg tablet escitalopram oxalate 20 mg tablet 20 mg PO DAILY 01/28/25 01/28/25 History Laboratory Tests 01/28/25 01/28/25 11:44 12:34 Amylase 69 U/L (30-110) POC Urine HCG, Qual Negative (Negative) : patient denies HCG: negative Patient hx anesthesia problems: none Family hx anesthesia problems: none Results Review: All pre-operative results and documents have been reviewed as part of the pre-operative evaluation. [facility] Past Medical History Medical History Anxiety Surgical History Surgical History H/O gynecological procedure 09/30/23 Nexplanon insertion History of ankle surgery H/O breast augmentation Family History Family History Father Diabetes mellitus Depression Heart disease Hypertension Social History Social History Smoking status: Never smoker Alcohol intake: never Substance use: former Lack of Transportation: No Lack of Food: Never True Current Housing: I Have Housing Concerned About Future Housing: No Difficulty Paying Gas/Electric Bills: YES Difficulty Paying for Meds: YES Currently Unemployed: No Education: High School Diploma/GED Difficulty w/ Childcare or Family Care: YES Living arrangements: with family Occupation/Education: occupation Gender identity (if verbalized by the patient): Female Sexual Orientation (if Verbalized by the Patient): Straight or Heterosexual Spiritual care concerns: No Anes - Eval Final PreProcedure Day of Procedure 01/28/25 13:24 Patient weight: morbidly obese Heart: regular rate and rhythm Lungs: clear to auscultation Airway: Mallampati scale class II Neurological: alert and oriented Last oral intake: >/= 8 hours ASA classification: III Emergent: no Anesthetic plan: proceed Anesthesia type and monitoring: general ETT and standard monitoring Results Review: All pre-operative results and documents have been reviewed as part of the pre-operative evaluation. Informed Consent: The patient's anesthetic plan and its attendant risks and benefits were discussed with the patient/family/POA. Questions were solicited and answers provided to the satisfaction of the patient/family/POA.
[2025-01-28] MEDS: ceFAZolin 3 GM/D5W 100 ML 100 ML IVPB (13:35)
[2025-01-28] MEDS: BUPIVACAINE/EPINEPHRINE 0.5% 50 ML VIAL 30 ML INFILTRATE (13:48)
--- NOTE | 2025-01-28 14:22 | W.PM.PROC2 ---
Procedure Note - Detailed Date of Procedure 01/28/25 Pre-op Diagnosis symptomatic cholelithiasis Post-op Diagnosis Same Procedure Performed Laparoscopic cholecystectomy Surgeon Winston Ames, DO Anesthesia General and Local (0.5% bupivacaine) Indications This is a 29-year-old woman who presented with right upper quadrant abdominal pain for the past several weeks. She had been to the emergency department about 1 month ago and was found to have evidence of cholelithiasis on ultrasound. She has continued to have fairly frequent abdominal pains since then. Over the past week the pain had become more constant. Discussions were made with the patient about treatment options and decision was made to proceed with laparoscopic cholecystectomy, possible open. Findings Laparoscopic cholecystectomy was performed. The gallbladder had some chronic wall thickening and contained a medium-sized gallstone within the body of the gallbladder. The cystic duct appeared normal in size. No other intra-abdominal abnormalities were noted. The gallbladder was removed and sent to lab for pathology. Description of Procedure Procedure as well as risks, benefits, and alternatives were discussed with patient. Written consent was obtained and placed in chart prior to procedure. The patient was brought back to surgical suite. Patient was placed in supine position on operating table. Time-out was done to confirm patient and procedure. Patient was then intubated by the anesthesia department. Abdomen was prepped and draped in sterile fashion using chlorhexidine prep. 0.5% bupivacaine with epinephrine was infiltrated at each site of incision. A 5 millimeter incision was made near the umbilicus, and a 5 millimeter Optiview trocar was advanced through the abdominal layers under direct visualization. Once inside the abdominal cavity, carbon dioxide was insufflated to create a pneumoperitoneum. The camera was inserted and the abdomen was inspected. No immediate abnormalities were identified. The patient was placed in reverse Trendelenburg position and rotated slightly to the left. An 11 millimeter incision was made in the subxiphoid region, and an 11 millimeter trocar was inserted under direct visualization. Two 5 millimeter incisions were made in the right upper quadrant, and two 5 millimeter trocars were inserted under direct visualization. The gallbladder was identified and grasped at the fundus and retracted superiorly. It was then grasped at the infundibulum retracted laterally. Careful dissection around the neck of the gallbladder was performed using blunt dissection with a [place] grasper and hook electrocautery. The cystic duct was identified, and a window was created behind it. The cystic artery was also identified and a window was created behind it. The critical view of safety was identified, visualizing the cystic duct running directly into the neck of the gallbladder, and the cystic artery running directly into the wall of the gallbladder. A 5 millimeter clip summer school coordinator was then used to place 2 clips proximally and 1 clip distally on both the cystic duct and cystic artery. They were then both transected using endoscopic scissors. Once safely away from the sidney hepatitis, the gallbladder was dissected free from the liver bed using hook electrocautery. Hemostasis was achieved along the way. The gallbladder was removed completely and then removed through the subxiphoid port. The liver bed was then inspected. Hemostasis appeared adequate, and our clips appeared secure. The area was gently irrigated with sterile saline. No other abnormalities were seen. The patient was flattened out in bed, and 1 final inspection was made around the abdominal cavity. The subxiphoid port was removed, and a Adriano Linda cone was used to approximate the fascia with an 0-Vicryl simple interrupted suture. The remaining ports were then removed under direct visualization, the camera was removed, and the pneumoperitoneum was released. The skin of the incisions was approximated using 4-0 Monocryl subcuticular sutures. Exofin glue was applied on top. The patient was then awakened from anesthesia, extubated, and transferred to recovery. Estimated Blood Loss 5 Pathology Yes (Gallbladder) Complications No immediate complications Condition Stable Disposition Same day [facility] Billing Surgery - Charge Forward: Surgery Billing
[2025-01-28] MEDS: fentaNYL CITRATE INJ (*CRX) 100 MCG/2 ML VIAL 25 MCG IV PUSH ×6 (15:01→15:39)
[2025-01-28] MEDS: diphenhydrAMINE HCl INJ 50 MG/ML VIAL 12.5 MG IV PUSH ×2 (15:12→15:26)
[2025-01-28] MEDS: oxyCODONE HCL (*CRX) 5 MG TAB IR PO (16:26)
== END 2025-01-28 17:05 | disposition home or self-care (01) ==
PROVIDERS: Visit Provider Surgery
PROC: 0FT44ZZ Resection of Gallbladder, Percutaneous Endoscopic Approach (ICD-10-PCS; CPT 47562; principal; 2025-01-28 13:00)
DX: K80.10 Calculus of gallbladder with chronic cholecystitis without obstruction (principal); E66.01 Morbid (severe) obesity due to excess calories; Z68.41 Body mass index [BMI] 40.0-44.9, adult
CPT/HCPCS: 47562; 36415; 82150; 88304; A9270; J0330; J0690; J1100; J1171; J1200; J1885; J2003; J2250; J2405; J2704; J3010; J7030; J7120